=== PATIENT | female | born 1945 | race Caucasian/White ===

== ENCOUNTER 2022-10-03 15:52 | Emergency (ER) | payer OTHER ==
--- NOTE | 2022-10-03 17:11 | RAD REPORT ---
EXAM DESCRIPTION: CT - Head C Spine Mpr Wo Con - 10/03/2022 4:57 pm CLINICAL HISTORY: Head and neck injury status post fall. Head and neck pain COMPARISON: None. TECHNIQUE: Computed axial tomography of the head and cervical spine was obtained. Sagittal and coronal reconstruction was performed. All CT scans are performed using dose optimization technique as appropriate and may include automated exposure control or mA/KV adjustment according to patient size. FINDINGS: Right parietal scalp hematoma containing air within the scalp. No underlying fracture seen . An intracranial bleed is not seen. The ventricles are normal in caliber. No significant hypodensity within the brain. An extra-axial fluid collection is not noted. Fluid within the visualized sinuses and mastoids is not seen A cervical fracture is not visualized. No dislocation is noted. IMPRESSION: Large scalp hematoma. Heterogeneous density may indicate active bleeding No acute intracranial abnormality is seen. A cervical fracture is not visualized. If the patient continues to have symptoms to suggest intracranial /spinal cord pathology then MRI wou ld be recommended
--- NOTE | 2022-10-03 18:38 | EDPHYS ---
Physician Documentation [facility] Name: Gaviota Vincent Age: 76 yrs Sex: Female : 1945 Arrival Date: 10/03/2022 Time: 15:54 Bed 11 Private MD: ED Physician Varun Eisenberg HPI: 10/03 19:11 This 76 yrs old Female presents to ER via EMS with complaints of Fall Injury. kb 19:11 Details of fall: The patient fell from a height, step ladder, 2 steps up. Onset: The kb symptoms/episode began/occurred just prior to arrival. Associated injuries: The patient sustained injury to the head, hematoma, laceration. Severity of symptoms: At their worst the symptoms were moderate, in the emergency department the symptoms are unchanged. The patient has not experienced similar symptoms in the past. The patient has not recently seen a physician. Pt reports she fell from a step ladder just seating captain and hit her head on the wall. Was ambulatory afterwards. Denies loc. Historical: - Allergies: 16:08 Codeine; eh3 - Home Meds: 16:08 atorvastatin oral [Active]; Avapro Oral [Active]; BuSpar Oral [Active]; Creon oral eh3 [Active]; Desyrel Oral [Active]; levothyroxine oral [Active]; Norvasc Oral [Active]; Pepcid Oral [Active]; Protonix Oral [Active]; Keppra Oral [Active]; metformin Oral [Active]; - PMHx: 16:08 Hypertensive disorder; Diabetes mellitus; Seizure; eh3 - Immunization history: Last tetanus immunization: - up to date. - Social history:: Smoking status: Patient denies any tobacco usage or history of. Patient uses alcohol, but reports only rare drinking. ROS: 19:21 Constitutional: Negative for fever, chills, and weight loss. kb 19:21 Skin: Positive for hematoma, laceration(s). 19:21 All other systems are negative. Exam: 19:24 Constitutional: This is a well developed, well nourished patient who is awake, alert, kb and in no acute distress. Eyes: Pupils equal round and reactive to light, extra-ocular motions intact. Lids and lashes normal. Conjunctiva and sclera are non-icteric and not injected. Cornea within normal limits. Periorbital areas with no swelling, redness, or edema. ENT: Moist Mucous membranes Cardiovascular: Regular rate and rhythm with a normal S1 and S2. No gallops, murmurs, or rubs. No pulse deficits. Respiratory: Respirations even and unlabored. No increased work of breathing. Talking in full sentences Abdomen/GI: Soft, non-tender. No distention MS/ Extremity: Pulses equal, no cyanosis. Neurovascular intact. Full, normal range of motion. Neuro: Awake and alert, GCS 15, oriented to person, place, time, and situation. Moves all extremities. Normal gait. Psych: Awake, alert, with orientation to person, place and time. Behavior, mood, and affect are within normal limits. 19:24 Head/face: Noted is no obvious of injury or deformity except hematoma, a laceration(s). 19:24 Skin: injury, laceration(s), the wound is approximately 1.5 cm(s), of the right parietal area, that can be described as clean, no foreign body, linear. Vital Signs: 15:55 BP 99 / 76; Pulse 88; Resp 18; Temp 98.4(O); Pulse Ox 97% on R/A; Weight 126.1 kg; 3 Height 5 ft. 1 in. (154.94 cm); Pain 9/10; 17:00 BP 94 / 74; Pulse 82; Resp 16; Pulse Ox 98% on R/A; eh3 18:00 BP 116 / 73; Pulse 84; Resp 16; Pulse Ox 98% on R/A; eh3 15:55 Body Mass Index 52.53 (126.10 kg, 154.94 cm) 3 Jos Coma Score: 15:55 Eye Response: spontaneous(4). Verbal Response: oriented(5). Motor Response: obeys eh3 commands(6). Total: 15. Trauma Score (Adult): 15:55 Eye Response: spontaneous(1); Verbal Response: oriented(1); Motor Response: obeys eh3 commands(2); Systolic BP: > 89 mm Hg(4); Respiratory Rate: 10 to 29 per min(4); [place] Score: 15; Trauma Score: 12 Laceration: 18:36 Wound Repair of 1.5cm ( 0.6in ) subcutaneous laceration to right parietal area. Linear kb shaped.. Distal neuro/vascular/tendon intact. Wound prep: Moderate cleansing by nurse. Skin closed with 1 1-0 Blaze using staple gun. Patient tolerated well. MDM: 16:04 Patient medically screened. kb 19:07 Data reviewed: vital signs, nurses notes. kb 19:24 Differential diagnosis: closed head injury, contusion, laceration. Counseling: I had a kb detailed discussion with the patient and/or guardian regarding: the historical points, exam findings, and any diagnostic results supporting the discharge/admit diagnosis, radiology results, the need for outpatient follow up, a family practitioner, to return to the emergency department if symptoms worsen or persist or if there are any questions or concerns that arise at home. 10/03 16:06 Order name: CT Head C Spine; Complete Time: 17:19 kb 10/03 16:25 Order name: Wound Care: clean wound; Complete Time: 16:50 kb Administered Medications: No medications were administered Disposition: 19:35 Co-signature as Attending Physician, Varun Eisenberg MD I agree with the assessment and kdr plan of care. Disposition Summary: 10/03/22 18:37 Discharge Ordered Location: Home kb Condition: Stable kb Diagnosis - Fall (on) (from) other stairs and steps kb - Unspecified injury of head, initial encounter kb - Laceration without foreign body of scalp kb Followup: kb - With: Emergency Department - When: As needed - Reason: Worsening of condition Followup: kb - With: Private Physician - When: 2 - 3 days - Reason: Recheck today's complaints, Continuance of care, Re-evaluation by your physician Discharge Instructions: - Discharge Summary Sheet kb - Hematoma, [id number] kb - Head Injury, Adult, [id number] kb Forms: - Medication Reconciliation Form kb - Thank You Letter kb - Antibiotic Education kb - Prescription Opioid Use kb Signatures: Dispatcher [employer] EDMS Zoila Delgadillo, DORETHA-C DORETHA-Varun Saenz MD MD kdr Hall, Erin, MESSI RN eh3
--- NOTE | 2022-10-03 18:38 | ER ---
Nurse's Notes [facility] Name: Gaviota Vincent Age: 76 yrs Sex: Female : 1945 Arrival Date: 10/03/2022 Time: 15:54 Bed 11 Private MD: Diagnosis: Fall (on) (from) other stairs and steps;Unspecified injury of head, initial encounter;Laceration without foreign body of scalp Presentation: 10/03 15:55 Chief complaint: EMS states: EMS toned out for fall, pt was hanging pictures standing eh3 2ft up on a ladder, fell and hit head, states no LOC but does not remember falling. Hematoma on frontal area and laceration with moderate controlled bleeding on right posterior parietal area. Care prior to arrival: None. Mechanism of Injury: Fall from ladder approximately 2 feet. Trauma event details: Injury occurred in the [facility], Injury occurred: at home. Injury occurred: October 03, 2022 Injury occurred at: 15:30. 15:55 Acuity: JASPER 2 3 15:55 Method Of Arrival: EMS: [facility] 3 15:55 Coronavirus screen: Vaccine status: Patient reports receiving the 2nd dose of the covid eh3 vaccine. Ebola Screen: No symptoms or risks identified at this time. Initial Sepsis Screen: Does the patient meet any 2 criteria? No. Patient's initial sepsis screen is negative. Does the patient have a suspected source of infection? No. Patient's initial sepsis screen is negative. Risk Assessment: Do you want to hurt yourself or someone else? Patient reports no desire to harm self or others. Onset of symptoms was October 03, 2022. Historical: - Allergies: 16:08 Codeine; eh3 - Home Meds: 16:08 atorvastatin oral [Active]; Avapro Oral [Active]; BuSpar Oral [Active]; Creon oral eh3 [Active]; Desyrel Oral [Active]; levothyroxine oral [Active]; Norvasc Oral [Active]; Pepcid Oral [Active]; Protonix Oral [Active]; Keppra Oral [Active]; metformin Oral [Active]; - PMHx: 16:08 Hypertensive disorder; Diabetes mellitus; Seizure; eh3 - Immunization history: Last tetanus immunization: - up to date. - Social history:: Smoking status: Patient denies any tobacco usage or history of. Patient uses alcohol, but reports only rare drinking. Screenin:55 Abuse screen: Denies threats or abuse. Denies injuries from another. Tuberculosis eh3 screening: No symptoms or risk factors identified. 15:55 [facility] ED Fall Risk Assessment (Adult) History of falling in the last 3 months, eh3 including since admission Yes- single mechanical fall (1 pt) Confusion or Disorientation No (0 pts) Intoxicated or Sedated No (0 pts) Impaired Gait No (0 pts) Mobility Assist Device Used No (0 pt) Altered Elimination No (0 pt) Score/Fall Risk Level 0 - 2 = Low Risk. Nutritional screening: No deficits noted. Primary Survey: 15:55 NO uncontrolled hemorrhage observed. A: The client is awake and alert. The airway is eh3 patent. Breathing/Chest: Spontaneous respiratory effort, equal unlabored respirations, breath sounds clear bilaterally, regular pattern, symmetrical chest rise and fall. Circulation:. Disability Pupils are equal, round, reactive to light and accommodation. Client is alert. Exposure/Environment: Obvious injury(ies) are noted at this time: laceration to right posterior parietal area and hematoma on frontal area. Reassessment Alertness and Airway: Awake and alert. The airway is patent. Breathing: Spontaneous respiratory effort, equal unlabored respirations, breath sounds clear bilaterally, regular pattern with symmetrical chest rise and fall. Circulation: No external hemorrhage noted. Regular and strong central pulse, skin warm/dry/normal color. Disability: Pupils Pupils are equal, round, reactive to light and accomodation. Alert. Assessment: 15:55 General: Appears in no apparent distress. uncomfortable, Behavior is cooperative, eh3 appropriate for age, anxious. Pain: Complains of pain in head. 17:00 Reassessment: Patient appears in no apparent distress at this time. Patient and/or 3 family updated on plan of care and expected duration. Pain level reassessed. Patient is alert, oriented x 3, equal unlabored respirations, skin warm/dry/pink. 18:00 Reassessment: Patient appears in no apparent distress at this time. Patient and/or 3 family updated on plan of care and expected duration. Pain level reassessed. Patient is alert, oriented x 3, equal unlabored respirations, skin warm/dry/pink. Vital Signs: 15:55 BP 99 / 76; Pulse 88; Resp 18; Temp 98.4(O); Pulse Ox 97% on R/A; Weight 126.1 kg; eh3 Height 5 ft. 1 in. (154.94 cm); Pain 9/10; 17:00 BP 94 / 74; Pulse 82; Resp 16; Pulse Ox 98% on R/A; eh3 18:00 BP 116 / 73; Pulse 84; Resp 16; Pulse Ox 98% on R/A; eh3 15:55 Body Mass Index 52.53 (126.10 kg, 154.94 cm) eh3 Jos Coma Score: 15:55 Eye Response: spontaneous(4). Verbal Response: oriented(5). Motor Response: obeys eh3 commands(6). Total: 15. Trauma Score (Adult): 15:55 Eye Response: spontaneous(1); Verbal Response: oriented(1); Motor Response: obeys eh3 commands(2); Systolic BP: > 89 mm Hg(4); Respiratory Rate: 10 to 29 per min(4); Jos Score: 15; Trauma Score: 12 ED Course: 15:54 Patient arrived in ED. eb 15:55 Lacy Sesay, RN is Primary Nurse. eh3 15:55 Patient has correct armband on for positive identification. Bed in low position. Call eh3 light in reach. Side rails up X2. Patient maintains SpO2 saturation greater than 95% on room air. 15:55 Patient maintains SpO2 saturation greater than 95% on room air. eh3 15:55 Thermoregulation: warm blanket given to patient. eh3 15:58 Triage completed. eh3 16:04 Zoila Delgadillo FNP-C is [facility]. kb 16:04 Varun Eisenberg MD is Attending Physician. kb 16:08 Arm band placed on. eh3 16:40 Wound care: to laceration located on right parietal area was irrigated with normal eh3 saline, Patient tolerated well. 16:58 CT Head C Spine In Process Unspecified. EDMS 19:11 No provider procedures requiring assistance completed. Patient did not have IV access eh3 during this emergency room visit. Administered Medications: No medications were administered Medication: 19:11 VIS not applicable for this client. eh3 Outcome: 18:37 Discharge ordered by . kb 19:11 Discharged to home ambulatory. eh3 19:11 Condition: stable 19:11 Discharge instructions given to patient, Instructed on discharge instructions, follow up and referral plans. Demonstrated understanding of instructions, follow-up care. 19:12 Patient left the ED. eh3 Signatures: Dispatcher [employer] EDZoila Umanzor, PERRY REEDP-Magaly Devries Erin, RN RN eh3
== END 2022-10-03 19:12 | disposition home or self-care (01) ==
LOC: ER 15:52
PROC: 0HQ0XZZ Repair Scalp Skin, External Approach (ICD-10-PCS; principal; 2022-10-03)
DX: S01.01XA Laceration without foreign body of scalp, initial encounter (principal); W10.8XXA Fall (on) (from) other stairs and steps, initial encounter; Z88.5 Allergy status to narcotic agent; E11.9 Type 2 diabetes mellitus without complications; I10 Essential (primary) hypertension
CPT/HCPCS: 70450; 72125; 99284